=== PATIENT | female | born 1965 | race Caucasian/White ===

== ENCOUNTER 2023-03-24 12:35 | Emergency (ER) | payer MEDICAID ==
[2023-03-24] MEDS ORDERED: Erythromycin Base 0.5% Ophth Oint 3.5 GM Tube EYEBOTH ONE (12:47)
== END 2023-03-24 13:00 | disposition home or self-care (01) ==
LOC: CC.ED 12:35
DX: H00.025 Hordeolum internum left lower eyelid (principal)
CPT/HCPCS: 99282; 99283; A9270-GY